=== PATIENT | male | born 1960 | race Caucasian/White ===

== ENCOUNTER 2021-06-10 10:29 | Emergency (ER) | payer OTHER, SELFPAY ==
--- NOTE | ~2021-06-10 | XR_ITS ---
EXAMINATION: XR abdomen/kub 1V INDICATION: Constipation and bloating TECHNIQUE: Supine views of the abdomen were obtained on 2 radiographs. COMPARISON: None FINDINGS: There are no dilated loops of bowel. A moderate volume of stool is present in the ascending colon. No free intraperitoneal gas is identified. There is mild osteoarthritis of the hips. Phleboli ths are noted in the pelvis. IMPRESSION: 1. Unremarkable abdominal radiographs. Reviewed, dictated and finalized at location A. OR ACCOUNT DIRECTOR
[2021-06-10 10:34] VITALS: BP 134/91; PULSE 90; RESP 16; TEMP 36.2; O2SAT 96
[2021-06-10 12:30] VITALS: BP 139/74; PULSE 88; RESP 15; O2SAT 99
--- NOTE | 2021-06-10 13:56 | ED.GENADULT ---
HPI - General Adult General Chief complaint: Urogenital-Male Stated complaint: constipation Time Seen by Provider: 06/10/21 12:03 History of Present Illness HPI narrative: Patient is a 61-year-old male who presents ER with concerns for constipation and urinary frequency. Reports he has been having difficulty urinating over the last few days. He does report chronic weak stream and slow starting when voiding. No dysuria. No concern for sexual transfer infection. Patient also reports he has been constipated has not had a bowel movement recently. He has tried no laxatives. Related Data Allergies Allergy/AdvReac Type Severity Reaction Status Date / Time No Known Allergies Allergy Verified 11/09/20 09:54 Review of Systems Constitutional: Constitutional: Denies chills and Denies fever(s) Gastrointestinal: Gastrointestinal: Denies abdominal pain, Reports constipation, Denies nausea and Denies vomiting Genitourinary: Genitourinary: Reports oliguria, Denies dysuria and Reports urinary frequency PMFSH Past Medical History Medical History (Updated 06/10/21 @ 23:35 by Félix Poe MD) Healthy adult male Surgical History Surgical History (Updated 06/10/21 @ 23:35 by Félix Poe MD) History of appendectomy History of repair of rotator cuff Family History Family History (System 11/09/20 @ 09:54 by Lillian Jones) Mother Family history of malignant neoplasm of breast in first degree relative Family history of lung cancer Father Family history of lung cancer Social History Social History (System 11/09/20 @ 09:54 by Lillian Jones) Smoking status: Never smoker Alcohol intake: current Exam Narrative: GENERAL: Well-appearing, well-nourished, and in no acute distress. HEAD: Normocephalic, atraumatic. CHEST: Clear to auscultation. No respiratory distress. HEART: Regular rate and rhythm. Normal peripheral pulses. ABDOMEN: Soft, nontender, nondistended. EXTREMITIES: Normal range of motion. No edema. NEURO: Alert and oriented x3. PSYCH: Normal mood and affect. Course Course Emergency Course: We will give prescription for MiraLAX for constipation. Suspect patient is suffering from BPH. Will give referral to urology and start on Flomax. Vital Signs Vital signs: Vital Signs Temperature 97.2 F L 06/10/21 10:34 Pulse Rate 90 06/10/21 10:34 Respiratory Rate 16 06/10/21 10:34 Blood Pressure 134/91 H 06/10/21 10:34 Pulse Oximetry 96 06/10/21 10:34 Temperature 97.2 F L 06/10/21 10:34 Pulse Rate 88 06/10/21 12:30 Respiratory Rate 15 06/10/21 12:30 Blood Pressure 139/74 06/10/21 12:30 Pulse Oximetry 99 06/10/21 12:30 Medical Decision Making Vital Signs Vital Signs: Vital Signs Temperature 97.2 F L 06/10/21 10:34 Pulse Rate 90 06/10/21 10:34 Respiratory Rate 16 06/10/21 10:34 Blood Pressure 134/91 H 06/10/21 10:34 Pulse Oximetry 96 06/10/21 10:34 Temperature 97.2 F L 06/10/21 10:34 Pulse Rate 88 06/10/21 12:30 Respiratory Rate 15 06/10/21 12:30 Blood Pressure 139/74 06/10/21 12:30 Pulse Oximetry 99 06/10/21 12:30 Imaging Data Radiologist's impression: ITS Impressions Abdomen X-Ray 06/10/21 11:59 IMPRESSION: 1. Unremarkable abdominal radiographs. Discharge Plan Discharge Clinical Impression: Urinary frequency, Constipation Patient Disposition: Home, Self-Care Condition: Stable Instructions: Constipation (ED), Enlarged Prostate (BPH) (ED) Additional Instructions: Return the ER if you have fever over 100.4 ?F, you cannot keep down food or water, you have chest pain or shortness of breath, you have additional concerns. Prescriptions: New tamsulosin [Flomax] 0.4 mg capsule 0.4 mg PO DAILY Qty: 14 RF: 0 polyethylene glycol 3350 [Miralax] 17 gram/dose powder 17 g PO DAILY Qty: 119 RF: 0 Follow-up/Referrals: Darrell Marin MD [Physician] - 1 Week [place]
== END 2021-06-10 14:12 | disposition home or self-care (01) ==
PROVIDERS: Emergency Provider Emergency Medicine; PCP Family Medicine
DX: K59.00 Constipation, unspecified (principal); R35.0 Frequency of micturition
CPT/HCPCS: 74018; 99283

== ENCOUNTER 2023-12-29 07:00 | Outpatient (NON) | payer MEDICARE, SELFPAY | END 2023-12-29 07:01 | disposition home or self-care (01) | PROVIDERS: PCP Physician Assistant; Visit Provider Internal Medicine Gastroenterology | DX: K21.00 Gastro-esophageal reflux disease with esophagitis, without bleeding (principal) | CPT/HCPCS: 88305 ==

== ENCOUNTER 2023-12-29 07:50 | Day surgery (SDC) | payer OTHER, SELFPAY ==
[2023-12-02 10:55] VITALS: BMI 27.3
--- NOTE | 2023-12-28 21:52 | PM.HPGS ---
History of Present Illness History of Present Illness Consent: Risks, benefits, and alternatives have been discussed and questions answered. Patient agrees to proceed with procedure. Chief complaint: Dysphagia unspecified,GERD w/o bleeding personal Narrative: Zoe Walker is a 63 year old male who has a history of reflux esophagitis grade 4, history of esophageal ulcers and esophageal stricture requiring dilation all in 2018. He states after he had that EGD in 2018 his dysphagia improved up until 3 years ago. He has had no unintentional weight loss. He has episodes of dysphagia to solids where he has to stretches neck out and bring up the food bolus. He has not needed any emergent EGD for food bolus removal. He states he had not been taking any PPI therapy. Review of Systems Review of Systems: All systems reviewed & are unremarkable except as noted in HPI and below PMFSH Past Medical History Medical History Healthy adult male Surgical History Surgical History History of appendectomy History of repair of rotator cuff Family History Family History Mother Family history of malignant neoplasm of breast in first degree relative Family history of lung cancer Father Family history of lung cancer Social History Social History Smoking status: Never smoker Alcohol intake: current Alcohol use details: 0-3 socially Substance use type: does not use Living arrangements: with family Meds Home Medications and Allergies Home Medications Medication Instructions Recorded Confirmed Type eszopiclone 1 mg tablet (Lunesta) 1 mg PO QHS 11/26/23 12/29/23 History meloxicam 7.5 mg tablet 7.5 mg PO DAILY 11/26/23 12/29/23 History omeprazole 20 mg capsule,delayed 20 mg PO DAILY 11/26/23 12/29/23 History release cyclobenzaprine 10 mg tablet 10 mg PO HS 12/23/23 12/29/23 History Allergies Allergy/AdvReac Type Severity Reaction Status Date / Time No Known Allergies Allergy Verified 12/29/23 08:43 Exam Const: General: alert Orientation/consciousness: patient oriented x3 Resp: Auscultation: clear to auscultation bilaterally Cardio: Rhythm: regular rhythm GI: GI Palp: Yes Soft to palpation and No Tenderness to palpation present (GI) Neuro: General: patient oriented x3 Assessment and Plan Assessment and plan (1) Dysphagia: Code(s): R13.10 - Dysphagia, unspecified Status: Acute Assessment and Plan: EGD with possible biopsy or dilatation or cautery.
[2023-12-29 08:53] VITALS: BMI 27.1
[2023-12-29 08:55] VITALS: BP 133/90; PULSE 55; RESP 20; TEMP 36.7; O2SAT 99
--- NOTE | 2023-12-29 08:58 | P.PNAN_ITS ---
Anes - Initial Pre Proc Eval Procedure: Operation Date: 12/29/23 10:00 Proposed Procedures p Esophagogastroduodenoscopy - Chema Tucker MD Date/Time: 12/29/23 08:58 Surgeon: Chema Tucker MD Pre Op Diagnosis: Dysphagia unspecified,GERD w/o bleeding personal Patient Data Age: 63 Gender: M Height: 1.83 m Weight: 91 kg Last Vital Signs Temp 36.7 C 12/29/23 08:55 Pulse 55 L 12/29/23 08:55 Resp 20 12/29/23 08:55 BP 133/90 12/29/23 08:55 Pulse Ox 99 12/29/23 08:55 O2 Del Method Room Air 12/29/23 08:55 Allergies Allergy/AdvReac Type Severity Reaction Status Date / Time No Known Allergies Allergy Verified 12/29/23 08:43 Home Medications Medication Instructions Recorded Confirmed Type eszopiclone 1 mg tablet (Lunesta) 1 mg PO QHS 11/26/23 12/29/23 History meloxicam 7.5 mg tablet 7.5 mg PO DAILY 11/26/23 12/29/23 History omeprazole 20 mg capsule,delayed 20 mg PO DAILY 11/26/23 12/29/23 History release cyclobenzaprine 10 mg tablet 10 mg PO HS 12/23/23 12/29/23 History Patient hx anesthesia problems: none Family hx anesthesia problems: none Results Review: All pre-operative results and documents have been reviewed as part of the pre- operative evaluation. [facility] Past Medical History Medical History Healthy adult male Surgical History Surgical History History of appendectomy History of repair of rotator cuff Family History Family History Mother Family history of malignant neoplasm of breast in first degree relative Family history of lung cancer Father Family history of lung cancer Social History Social History Smoking status: Never smoker Alcohol intake: current Alcohol use details: 0-3 socially Substance use type: does not use Living arrangements: with family Anes - Eval Final PreProcedure Day of Procedure 12/29/23 08:58 Patient weight: overweight Heart: regular rate and rhythm Lungs: clear to auscultation Airway: Mallampati scale class II Neurological: alert and oriented Last oral intake: >/= 8 hours ASA classification: II Emergent: no Anesthetic plan: proceed Anesthesia type and monitoring: general GIVS and standard monitoring Results Review: All pre-operative results and documents have been reviewed as part of the pre- operative evaluation. Informed Consent: The patient's anesthetic plan and its attendant risks and benefits were discussed with the patient/family/POA. Questions were solicited and answers provided to the satisfaction of the patient/family/POA.
[2023-12-29] MEDS: LACTATED RINGERS 1,000 ML 150 ML IV CONT (09:05)
[2023-12-29 10:27] VITALS: BP 115/87; PULSE 53; RESP 12; O2SAT 99
[2023-12-29 10:37] VITALS: BP 111/84; PULSE 51; RESP 12; O2SAT 97
[2023-12-29 10:47] VITALS: BP 119/81; PULSE 54; RESP 14; O2SAT 100
--- NOTE | 2023-12-29 11:03 | WPDANESPN ---
Anes - Prog Note Post-Op Date/Time: 12/29/23 11:03 Cardiovascular status: normal Respiratory status: normal Airway patency: baseline Mental status: baseline Post-Op hydration status: normal Vital Signs: Last Vital Signs Temp 36.7 C 12/29/23 08:55 Pulse 54 L 12/29/23 10:47 Resp 14 12/29/23 10:47 BP 119/81 12/29/23 10:47 Pulse Ox 100 12/29/23 10:47 O2 Del Method Room Air 12/29/23 10:47 Pain Score (VAS): 0 I/O: Intake & Output 12/28/23 12/29/23 12/29/23 23:59 07:59 15:59 Intake Total 300 Balance 300 Patient Feedback: Patient satisfied with anesthetic care.
== END 2023-12-29 10:59 | disposition home or self-care (01) ==
PROVIDERS: PCP Physician Assistant; Visit Provider Internal Medicine Gastroenterology
PROC: 0DJ08ZZ Inspection of Upper Intestinal Tract, Via Natural or Artificial Opening Endoscopic (ICD-10-PCS; CPT 43235; principal; 2023-12-29 10:00)
DX: R13.19 Other dysphagia (principal); K22.2 Esophageal obstruction
CPT/HCPCS: 43249; 43239